=== PATIENT | female | born 1980 | race Caucasian/White ===

== ENCOUNTER 2022-10-03 10:07 | Emergency (ER) | payer BC ==
[~2022-10-03] VITALS: Ht 167.6 cm; Wt 59.0 kg
[2022-10-03] MEDS ORDERED: ketorolac trometh. 30mg/ml inj. IV ONE (10:20)
[2022-10-03] MEDS ORDERED: ondansetron/PF 4mg/2ml inj IV ONE (10:25)
[2022-10-03 10:37] LABS: BASOPHILS % (AUTO) 0.5 % (0-1); EOSINOPHILS # (AUTO) 0.1 X10'3 (0-0.9); EOSINOPHILS % (AUTO) 0.9 % (0-6); HEMATOCRIT 39.2 % (35.0-45.0); HEMOGLOBIN 13.7 g/dl (12.0-16.0); LYMPHOCYTES # (AUTO) 1.4 X10'3 (1.1-4.8); MEAN CORPUSCULAR HEMOGLOBIN 32.9 PG (27.0-31.0); MEAN CORPUSCULAR HGB CONC 34.9 g/dL (33.0-36.5); MEAN CORPUSCULAR VOLUME 94.4 FL (78-98); MEAN PLATELET VOLUME 7.3 FL (7.4-10.4); MONOCYTES # (AUTO) 0.3 X10'3 (0-0.9); MONOCYTES % (AUTO) 4.9 % (2-12); NEUTROPHILS # (AUTO) 5.1 X10'3 (1.8-7.7); NEUTROPHILS % (AUTO) 73.7 % (42-75); PLATELET COUNT 279 X10'3 (140-440); RED BLOOD COUNT 4.16 X10'6 (4.20-5.60); RED CELL DISTRIBUTION WIDTH 12.2 % (11.5-14.5); WHITE BLOOD COUNT 6.8 X10'3 (4.5-11.0)
[2022-10-03 10:57] LABS: URINE HCG NEGATIVE (NEG)
[2022-10-03 10:59] LABS: CLARITY,URINE CLOUDY (Clear); COLOR,URINE AMBER (Yellow); GLUCOSE, URINE NEGATIVE (Neg); KETONES,URINE >=80 mg/dl (Neg); LEUKOCYTE ESTERASE ,URINE TRACE (Neg); NITRITES, URINE NEGATIVE (Neg); OCCULT BLOOD,URINE LARGE (Neg); PH,URINE 8.5 (4.8-8.0); PROTEIN,URINE 100 mg/dl (Neg); UROBILINOGEN,URINE 0.2 E.U/dL (0.2-1.0)
[2022-10-03 11:00] LABS: ALANINE AMINOTRANSFERASE 36 U/L (12-78); ALBUMIN 4.5 G/DL (3.4-5.0); ALBUMIN/GLOBULIN RATIO 1.6 (1.1-1.5); ALKALINE PHOSPHATASE 76 IU/L (46-116); ANION GAP 16 (8-16); ASPARTATE AMINO TRANSFERASE 30 U/L (10-37); BILIRUBIN,TOTAL 0.9 MG/DL (0.1-1.0); BLOOD UREA NITROGEN 16 MG/DL (7-18); BUN/CREATININE RATIO 11.6 (10.0-20.0); CALCIUM 9.8 MG/DL (8.5-10.1); CHLORIDE 99 MMOL/L (99-107); CREATININE 1.38 MG/DL (0.40-0.90); GLUCOSE 130 MG/DL (70-104); LIPASE < 50 U/L (73-393); POTASSIUM 3.1 MMOL/L (3.5-5.1); SODIUM 137 MMOL/L (135-145); TOTAL CARBON DIOXIDE 21.8 MMOL/L (24-32); TOTAL PROTEIN 7.4 G/DL (6.4-8.2); eGFR 42 ML/MIN
[2022-10-03 11:05] LABS: UA COLLECTION TYPE CLN CATCH MIDSTREAM
[2022-10-03 11:09] LABS: RBC,URINE TNTC /HPF (0-2)
[2022-10-03 11:11] LABS: SQUAMOUS EPITHELIAL CELL,UR FEW /LPF (FEW)
[2022-10-03] MEDS ORDERED: potassium Cl 20 mEq SR tablet PO STA ×2 (11:14→11:15)
[2022-10-03 11:15] LABS: BACTERIA,URINE 1+ /HPF (Neg)
[2022-10-03] MEDS ORDERED: normal saline 1000ML IV soln IVB ONE (11:15)
[2022-10-03 11:17] LABS: AMORPHOUS PHOSPHATES 1+
[2022-10-03] MEDS ORDERED: FLO0.4C PO (13:30)
[2022-10-03] MEDS ORDERED: ONDA4TAB12 PO (13:30)
[2022-10-03] MEDS ORDERED: CEPH-585 PO (13:30)
[2022-10-03] MEDS ORDERED: OXYC-138 PO (13:30)
[2022-10-03 13:53] VITALS: BP 129/69
[2022-10-03] MEDS ORDERED: OXYC-145 PO (15:55)
== END 2022-10-03 13:54 | disposition home or self-care (01) ==
LOC: ER 10:08
DX: N20.0 Calculus of kidney (principal); N39.0 Urinary tract infection, site not specified
CPT/HCPCS: 36415; 74176; 80053; 81001; 81025; 83690; 85025; 87088; 96361; 96374; 96375; 99285; J1885; J2405; J7030; 87077; 87186

== ENCOUNTER 2022-10-06 15:33 | Emergency (ER) | payer BC ==
[~2022-10-06] VITALS: Ht 167.6 cm; Wt 68.0 kg
[~2022-10-06 15:33] MED LIST: CEPH-585 PO; FLO0.4C PO; ONDA4TAB12 PO; OXYC-138 PO; OXYC-145 PO
[2022-10-06 15:52] VITALS: BP 112/65
[2022-10-06 16:49] LABS: BASOPHILS % (AUTO) 0.6 % (0-1); EOSINOPHILS % (AUTO) 0.2 % (0-6); HEMOGLOBIN 11.7 g/dl (12.0-16.0); LYMPHOCYTES # (AUTO) 0.9 X10'3 (1.1-4.8); LYMPHOCYTES % (AUTO) 10.8 % (21-51); MEAN CORPUSCULAR HEMOGLOBIN 33.3 PG (27.0-31.0); MEAN CORPUSCULAR HGB CONC 35.4 g/dL (33.0-36.5); MEAN CORPUSCULAR VOLUME 93.8 FL (78-98); MEAN PLATELET VOLUME 7.5 FL (7.4-10.4); MONOCYTES # (AUTO) 0.9 X10'3 (0-0.9); MONOCYTES % (AUTO) 11.1 % (2-12); NEUTROPHILS # (AUTO) 6.2 X10'3 (1.8-7.7); NEUTROPHILS % (AUTO) 77.3 % (42-75); PLATELET COUNT 182 X10'3 (140-440); RED BLOOD COUNT 3.52 X10'6 (4.20-5.60); RED CELL DISTRIBUTION WIDTH 11.9 % (11.5-14.5); WHITE BLOOD COUNT 8.1 X10'3 (4.5-11.0)
[2022-10-06 17:02] LABS: ALANINE AMINOTRANSFERASE 47 U/L (12-78); ALBUMIN 3.3 G/DL (3.4-5.0); ALKALINE PHOSPHATASE 76 IU/L (46-116); ANION GAP 11 (8-16); ASPARTATE AMINO TRANSFERASE 32 U/L (10-37); BILIRUBIN,TOTAL 0.5 MG/DL (0.1-1.0); BLOOD UREA NITROGEN 6 MG/DL (7-18); BUN/CREATININE RATIO 7.1 (10.0-20.0); CALCIUM 8.8 MG/DL (8.5-10.1); CHLORIDE 96 MMOL/L (99-107); CREATININE 0.85 MG/DL (0.40-0.90); GLUCOSE 105 MG/DL (70-104); LIPASE < 50 U/L (73-393); POTASSIUM 4.1 MMOL/L (3.5-5.1); SODIUM 132 MMOL/L (135-145); TOTAL PROTEIN 6.7 G/DL (6.4-8.2); eGFR 74 ML/MIN
[2022-10-06] MEDS ORDERED: ibuprofen 200mg tablet PO ONE (19:05)
--- NOTE | 2022-10-06 19:18 | NUR ---
PT. OFFERED MOTRIN 800 MG FOR FEVER, REFUSED STATES SHE TOOK MOTRIN A FEW HOURS AGO AND ALSO TOOK A PERCOCET PRIOR TO COMING TO THE ED THIS EVENING.
== END 2022-10-06 22:34 | disposition left against medical advice (07) ==
LOC: ER 15:34
DX: R50.9 Fever, unspecified (principal); R10.30 Lower abdominal pain, unspecified; Z53.21 Procedure and treatment not carried out due to patient leaving prior to being seen by health care provider
CPT/HCPCS: 36415; 80053; 83605; 83690; 85025; 99281